=== PATIENT | female | born 1985 | race Caucasian/White ===

== ENCOUNTER → 2020-08-17 13:35 | Outpatient (CLI) | payer BC, SELFPAY ==
--- NOTE | ~2020-08-17 | MM_ITS ---
EXAMINATION: MM screening rick BI w satish HISTORY: Screening TECHNIQUE: Craniocaudal and mediolateral oblique 3-D tomosynthesis images were obtained and synthetic 2-D images were generated. CAD analysis was submitted and interpreted. COMPARISON: 07/16/2016 BREAST PARENCHYMAL COMPOSITION: The breasts are heterogeneously dense, which may obscure small masses . FINDINGS: There is no evidence of suspicious mass, calcification, or architectural distortion to sugg est malignancy in either breast. There has been no suspicious interval change. IMPRESSION: 1. No mammographic evidence of malignancy. 2. Recommend routine screening mammography in one year. BI-RADS Category 1: Negative Reviewed, dictated and finalized at location A.
== END ==
PROVIDERS: Visit Provider Nurse Practitioner
DX: Z12.31 Encounter for screening mammogram for malignant neoplasm of breast (principal)
CPT/HCPCS: 77063; 77067

== ENCOUNTER → 2021-10-12 13:46 | Outpatient (CLI) | payer BC, SELFPAY ==
--- NOTE | ~2021-10-12 | MM_ITS ---
EXAMINATION: MM screening rick BI w satish HISTORY: Screening mammogram TECHNIQUE: Craniocaudal and mediolateral oblique 3-D tomosynthesis images were obtained and synthetic 2-D images were generated. CAD analysis was submitted and interpreted. COMPARISON: 08/17/2020 bilateral screening mammogram 02/14/2017 and 08/13/2016 diagnostic left mammogram and complete left breast ultrasound examination 07/16/2016 bilateral screening mammogram BREAST PARENCHYMAL COMPOSITION: There are scattered areas of fibroglandular density. FINDINGS: There is no evidence of suspicious mass, calcification, or architectural distortion to sugg est malignancy in either breast. There has been no suspicious interval change. IMPRESSION: 1. No mammographic evidence of malignancy. 2. Recommend routine screening mammography in one year. BI-RADS Category 1: Negative Reviewed, dictated and finalized at location B.
== END ==
PROVIDERS: PCP Family Medicine; Visit Provider Nurse Practitioner
DX: Z12.31 Encounter for screening mammogram for malignant neoplasm of breast (principal)
CPT/HCPCS: 77063; 77067

== ENCOUNTER → 2023-04-24 09:44 | Outpatient (CLI) | payer BC, SELFPAY ==
--- NOTE | ~2023-04-24 | US_ITS ---
Pelvic ultrasound. Clinical History: Abnormal uterine bleeding Technique: Realtime transabdominal and transvaginal scanning of the pelvis was performed. Color flow Doppler and Doppler spectral analysis were performed. Findings: The uterus is retroverted. The endometrial stripe has a thickness of 5 mm. IUD present at the lower uterine segment. No focal mass is identified. The right ovary measures 3.1 x 2.4 x 2.2 cm. No significant right ovarian or adnexal mass is seen. The left ovary measures 2.9 x 1.9 x 1.7 cm. No significant left ovarian or adnexal mass is seen. Vascular flow present in both ovaries on Doppler spectral analysis. There is no evidence of free fluid in the cul de sac. Impression: IUD in place, as above. Other significant findings. Reviewed, dictated and finalized at [facility]. RVISOR FERTILIZER Impression: IUD in place, as above. Other significant findings.
== END ==
PROVIDERS: PCP Nurse Practitioner; Visit Provider Nurse Practitioner
DX: N93.8 Other specified abnormal uterine and vaginal bleeding (principal); Z97.5 Presence of (intrauterine) contraceptive device
CPT/HCPCS: 76830

== ENCOUNTER 2023-05-26 10:11 | Outpatient (CLI) | payer BC, SELFPAY ==
--- NOTE | ~2023-05-26 | MM_ITS ---
EXAMINATION: MM screening rick BI w satish HISTORY: Screening mammogram TECHNIQUE: Craniocaudal and mediolateral oblique 3-D tomosynthesis images were obtained and synthetic 2-D images were generated. CAD analysis was submitted and interpreted. COMPARISON: 10/12/2021, 09/03/2020 bilateral screening mammogram examinations BREAST PARENCHYMAL COMPOSITION: There are scattered areas of fibroglandular density. FINDINGS: There is no evidence of suspicious mass, calcification, or architectural distortion to sugg est malignancy in either breast. There has been no suspicious interval change. IMPRESSION: 1. No mammographic evidence of malignancy. 2. Recommend routine screening mammography in one year. BI-RADS Category 1: Negative Reviewed, dictated and finalized at location A.
== END 2023-05-26 10:12 ==
LOC: MICIMG 10:12
PROVIDERS: PCP Obstetrics & Gynecology Gynecology; Visit Provider Obstetrics & Gynecology Gynecology
DX: Z12.31 Encounter for screening mammogram for malignant neoplasm of breast (principal)
CPT/HCPCS: 77063; 77067

== ENCOUNTER 2024-05-04 09:33 | Outpatient (CLI) | payer BC, SELFPAY ==
--- OUTSIDE RECORDS SUMMARY | 2024-05-04 09:45 | XMS_ITS | Clinical Summary ---
Author Organization [facility] Address [address] [place] [phone] Phone Care Team Providers Care Gimp Buttonhole Machine Operator Name Role Phone Carmella Velazquez MD Primary Care Provider Social History Tobacco Use Types Packs/Day Years Used Date Smoking Tobacco: Never Assessed Comments Unknown Sex and Gender Information Value Date Recorded Sex Assigned at Not on file Legal Sex Female 11:40 AM CDT Gender Identity Not on file Sexual Orientation Not on file Plan of Treatment Health Maintenance Due Date Last Done Comments DTAP/TDAP/TD VACCINES (1 - Tdap) 11/28/2002 HEPATITIS B VACCINES (1 of 3 - 19+ 3-dose series) 11/28/2002 CERVICAL CANCER SCREENING 11/28/2013 INFLUENZA VACCINE (#1) 2023 BREAST CANCER SCREENING 2023 HPV VACCINES Aged Out No longer eligi ble based on patient's age to complete this topic PNEUMOCOCCAL VACCINE 0-64 YEARS Aged Out No longer eligible based on patient's age to complete this topic Insurance [facility] [id number] Care Teams Gimp Buttonhole Machine Operator Relationship Specialty Start Date End Date Carmella Velazquez MD PCP - General Family Practice 09/15/14
--- OUTSIDE RECORDS SUMMARY | 2024-05-04 09:45 | XMS_ITS | Referral Summary ---
Author Organization [facility] [address] Address [address] [place] [phone] Care Team Providers Care Cabin Agent Name Role Phone Lavelle Velazquez MD Primary Care Provider [phone] Allergies No known active allergies Medications ALBUTEROL, BULK, MISC Active Symbicort 160-4.5 mcg/actuation inhaler INHALE 2 PUFFS BY MOUTH EVERY 12 HOURS 12/11/2021 Active ergocalciferol (VITAMIN D) 50,000 unit capsule Take 50,000 Units by mouth 12/11/2021 Active pseudoephedrine ER (SUDAFED) 120 mg 12 hr tablet 02/02/2022 Act kyara montelukast (SINGULAIR) 10 mg tablet Active predniSONE (DELTASONE) 10 mg tabletIndication s:ETD (Eustachian tube dysfunction), bilateral 20 mg bid x 5 days, 10 mg bid x 3 days, 10 mg daily x 3 days 29 tablet 02/11/2022 Active Active Problems Problem Noted Date Diagnosed Date ETD (Eustachian tube dysfunction), bilateral Deviated nasal septum 02/12/2022 Social History Tobacco Use Types Packs/Day Years Used Date Smoking Tobacco: Never Smokeless Tobacco: Never Tobacco Cessation:Counseling Given: Not Answered Comments Unknown Sex and Gender Information Value Date Recorded Sex Assigned at Not on file Legal Sex Female 9:22 AM CDT Gender Identity Not on file Sexual Orientation Not on file Last Filed Vital Signs Vital Sign Reading Time Taken Comments Blood Pressure - - Pulse - - Temperature - - Respiratory Rate 18 02/11/2022 2:24 PM INTERVENTIONIST Oxygen Saturation - - Inhaled Oxygen Concentration - - Weight 70.3 kg (155 lb) 02/11/2022 2:24 PM INTERVENTIONIST Height 170.2 cm (5' 7 ) 02/11/2022 2:24 PM INTERVENTIONIST Body Mass Index 24.28 02/11/2022 2:24 PM INTERVENTIONIST Plan of Treatment Not on file [place] [employer] [place] [place] Care Teams Cabin Agent Relationship Specialty Start Date End Date Lavelle Velazquez MD PCP - General Family Medicine 06/21/21
--- OUTSIDE RECORDS SUMMARY | 2024-05-04 09:45 | XMS_ITS | Clinical Summary ---
Author Organization [facility] [address] Address [address] [place] [phone] Care Team Providers Care Digital Media Manager Name Role Phone Lavelle Velazquez MD Primary Care Provider [phone] Allergies No known active allergies Medications ALBUTEROL, [...] tube dysfunction), bilateral Deviated nasal septum 02/12/2022 Medical History Medical History Date Comments Allergic rhinitis Asthma Family History Medical History Relation Name Comments Cancer Father Cancer Mother Cancer Other Relation Name Status Comments Father Mother Other Social History Tobacco Use Types Packs/Day Years Used Date Smoking Tobacco: Never Smokeless Tobacco: Never Tobacco Cessation:Counseling Given: Not Answered Comments Unknown Sex and Gender Information Value Date Recorded Sex Assigned at Not on file Legal Sex Female 9:22 AM CDT Gender Identity Not on file Sexual Orientation Not on file Obstetrics History Last Filed Vital Signs Vital Sign Reading Time Taken Comments Blood Pressure - - Pulse - - Temperature - - Respiratory Rate 18 02/11/2022 2:24 PM DRYING MACHINE TENDER Oxygen Saturation - - Inhaled Oxygen Concentration - - Weight 70.3 kg (155 lb) 02/11/2022 2:24 PM DRYING MACHINE TENDER Height 170.2 cm (5' 7 ) 02/11/2022 2:24 PM DRYING MACHINE TENDER Body Mass Index 24.28 02/11/2022 2:24 PM DRYING MACHINE TENDER Plan of Treatment Health Maintenance Due Date Last Done Comments Breast Cancer Screening-Mammogram 1983 Cervical Cancer Screening 1983 Depression Screening 1983 Hepatitis C Screening 1983 DTaP/Tdap/Td Vaccine (1 - Tdap) 11/28/1994 Varicella Vaccines (1 of 2 - 13+ 2-dose series) 11/28/1996 Hepatitis B Screening 11/28/2001 Regular Well Visit/Exam 18-64 11/28/2001 Covid-19 Vaccine ( season) 2023 12/27/2020, 05/20/2020, 04/29/2020 Influenza Vaccine (#1) 2023 , 01/11/2020, 01/04/2019, Additional history exists Pneumococcal vaccine <65 Aged Out 05/27/2019 No longer eligible based on patient's age to complete this topic HPV Vaccines Aged Out No longer eligi ble based on patient's age to complete this topic Insurance [facility] Care Teams Digital Media Manager Relationship Specialty Start Date End Date Lavelle Velazquez MD PCP - General Family Medicine 06/21/21
[2024-05-04 16:34] LABS: Hematocrit 41.4 % (37.0-47.0); Hemoglobin 13.7 g/dL (12.0-15.0); Mean Corpuscular HGB Conc 33.1 g/dl (32-36); Mean Corpuscular Volume 93.7 fl (80-100); Platelet Count Result 250 k/mm3 (150-375); Red Blood Count 4.42 M/mm3 (4.2-5.4); Red Cell Distribution Width 12.2 % (11.5-14.5); White Blood Count 5.2 K/mm3 (4.5-10.0)
[2024-05-04 16:54] LABS: Alanine Aminotransferase 26 U/L (6-35); Albumin Level 4.6 g/dL (3.5-5.1); Alkaline Phosphatase 39 U/L (38-126); Anion Gap 8 mmol/L (4-12); Aspartate Amino Transferase 30 U/L (14-36); Bilirubin,Total 0.6 mg/dL (0.2-1.3); Blood Urea Nitrogen 11 mg/dL (7-17); Calcium 9.6 mg/dL (8.4-10.2); Carbon Dioxide 28 mmol/L (22-30); Chloride 104 mmol/L (98-107); Cholesterol 161 mg/dL (0-200); Estimated Glomerular Filt Rate > 60; Glucose 90 mg/dL (65-110); HDL Direct 67 mg/dL; Potassium 4.7 mmol/L (3.4-5.0); Sodium 140 mmol/L (137-145); Triglycerides 42 mg/dL (<150)
[2024-05-04 17:05] LABS: LDL Cholesterol Direct 78 mg/dL
[2024-05-04 17:56] LABS: Free T4 Free Thyroxine 1.36 ng/dL (0.78-2.19); Vitamin D 25 Hydroxy 37.6 ng/mL
[2024-05-04 18:09] LABS: Thyroid Stimulating Hormone Reflex 0.926 uIU/mL (0.465-4.68)
== END 2024-05-04 09:34 | disposition home or self-care (01) ==
LOC: ANHGOSHLAB 09:35
PROVIDERS: PCP Family Medicine; Visit Provider Nurse Practitioner
DX: Z01.419 Encounter for gynecological examination (general) (routine) without abnormal findings (principal); E55.9 Vitamin D deficiency, unspecified
CPT/HCPCS: 36415; 80053; 80061; 82306; 82607; 83036; 84439; 84443; 85027

== ENCOUNTER 2024-06-17 10:48 | Outpatient (CLI) | payer BC, SELFPAY ==
--- NOTE | ~2024-06-17 | MM_ITS ---
EXAMINATION: MM screening rick BI w satish HISTORY: Screening TECHNIQUE: Craniocaudal and mediolateral oblique 3-D tomosynthesis images were obtained and synthetic 2-D images were generated. CAD analysis was submitted and interpreted. COMPARISON: Comparison to multiple prior studies sequentially, with oldest reviewed study dated 04/2016. BREAST PARENCHYMAL COMPOSITION: Not dense: There are scattered areas of fibroglandular density. FINDINGS: There is no evidence of suspicious mass, calcification, or architectural distortion to sugg est malignancy in either breast. There has been no suspicious interval change. IMPRESSION: 1. No mammographic evidence of malignancy. 2. Recommend routine screening mammography in one year. BI-RADS Category 1: Negative Reviewed, dictated and finalized at location A.
== END 2024-06-17 10:49 | disposition home or self-care (01) ==
LOC: MICIMG 10:48
PROVIDERS: PCP Obstetrics & Gynecology Gynecology; Visit Provider Obstetrics & Gynecology Gynecology
DX: Z12.31 Encounter for screening mammogram for malignant neoplasm of breast (principal)
CPT/HCPCS: 77063; 77067

== ENCOUNTER 2024-07-16 11:51 | Outpatient (CLI) | payer BC, SELFPAY ==
[2024-07-16 18:31] LABS: Vitamin D 25 Hydroxy 38.3 ng/mL
--- OUTSIDE RECORDS SUMMARY | 2024-07-17 12:58 | XMS_ITS | Referral Summary ---
Author Organization [facility] [address] Address [address] [place] [phone] Care Team Providers Care Rubbing Bed Operator Name Role Phone Lavelle Velazquez MD Primary Care Provider [phone] [phone] Allergies No known active allergies Medications ALBUTEROL, [...] - Respiratory Rate 18 02/11/2022 2:24 PM INDUSTRIAL MACHINE SYSTEM TECHNICIAN Oxygen Saturation - - Inhaled Oxygen Concentration - - Weight 70.3 kg (155 lb) 02/11/2022 2:24 PM INDUSTRIAL MACHINE SYSTEM TECHNICIAN Height 170.2 cm (5' 7 ) 02/11/2022 2:24 PM INDUSTRIAL MACHINE SYSTEM TECHNICIAN Body Mass Index 24.28 02/11/2022 2:24 PM INDUSTRIAL MACHINE SYSTEM TECHNICIAN Plan of Treatment Not on file Insurance [employer] [place] [employer] [place] Care Teams Rubbing Bed Operator Relationship Specialty Start Date End Date Lavelle Velazquez MD PCP - General Family Medicine 06/21/21
--- OUTSIDE RECORDS SUMMARY | 2024-07-17 12:58 | XMS_ITS | Clinical Summary ---
Author Organization [facility] [address] Address [address] [place] [phone] Care Team Providers Care Utility Helicopter Repairer Name Role Phone Lavelle Velazquez MD Primary Care Provider [phone] [phone] Allergies No known active allergies Medications ALBUTEROL, [...] - Respiratory Rate 18 02/11/2022 2:24 PM HEAVY CLEANER Oxygen Saturation - - Inhaled Oxygen Concentration - - Weight 70.3 kg (155 lb) 02/11/2022 2:24 PM HEAVY CLEANER Height 170.2 cm (5' 7 ) 02/11/2022 2:24 PM HEAVY CLEANER Body Mass Index 24.28 02/11/2022 2:24 PM HEAVY CLEANER Plan of Treatment Health Maintenance Due Date [...] patient's age to complete this topic Insurance [facility] Care Teams Utility Helicopter Repairer Relationship Specialty Start Date End Date Lavelle Velazuqez MD PCP - General Family Medicine 06/21/21
--- OUTSIDE RECORDS SUMMARY | 2024-07-17 12:58 | XMS_ITS | Clinical Summary ---
Author Organization [facility] Address [address] [place] [phone] Phone Care Team Providers Care Plastics Tooling Engineer Name Role Phone Carmella Velazquez MD Primary [...] of 3 - 19+ 3-dose series) 11/28/2002 HPV/Cotest (21-29) 11/28/2004 CERVICAL CANCER SCREENING 11/28/2013 HPV/Cotest (30-65) 11/28/2013 PAP SMEAR 11/28/2013 INFLUENZA VACCINE (#1) 2023 BREAST CANCER SCREENING 2023 HPV VACCINES Aged Out No longer eligi ble based on patient's age to complete this topic Insurance [facility] [id number] Care Teams Plastics Tooling Engineer Relationship Specialty Start Date End Date Carmella Velazquez MD PCP - General Family Practice 09/15/14
== END 2024-07-16 11:52 | disposition home or self-care (01) ==
LOC: ANHGOSHLAB 11:53
PROVIDERS: PCP Obstetrics & Gynecology Gynecology; Visit Provider Obstetrics & Gynecology Gynecology
DX: E53.8 Deficiency of other specified B group vitamins (principal); E55.9 Vitamin D deficiency, unspecified
CPT/HCPCS: 36415; 82306; 82607

== ENCOUNTER 2024-08-17 10:05 | Outpatient (CLI) | payer BC, SELFPAY ==
--- NOTE | ~2024-08-17 | US_ITS ---
Pelvic ultrasound. Clinical History: IUD placement Technique: Realtime transvaginal scanning of the pelvis was performed. Color flow Doppler and Doppler spectral analysis were performed. Findings: The uterus is retroverted, and measures 7.2 x 5.0 x 5.8 cm. The endometrial stripe has a t hickness of 5 mm. IUD is somewhat towards the lower uterine segment, probably in satisfactory positio n. No focal mass is identified. The right ovary measures 2.9 x 2.3 x 2.0 cm. No significant right ovarian or adnexal mass is seen. The left ovary measures 1.8 x 1.7 x 1.7 cm. No significant left ovarian or adnexal mass is seen. There is no evidence of free fluid in the cul de sac. Impression: IUD somewhat towards the lower uterine segment, probably in satisfactory position nonetheless. Reviewed, dictated and finalized at [facility]. Impression: IUD somewhat towards the lower uterine segment, probably in satisfactory positi on nonetheless.
== END 2024-08-17 10:06 | disposition home or self-care (01) ==
LOC: MICIMG 10:06
PROVIDERS: PCP Family Medicine; Visit Provider Nurse Practitioner
DX: Z30.431 Encounter for routine checking of intrauterine contraceptive device (principal)
CPT/HCPCS: 76830